=== PATIENT | female | born 1955 | race Caucasian/White ===

== ENCOUNTER → 2017-05-25 | Outpatient (CLI) | payer OTHER ==
[~2017-05-25] MED LIST: SIMV20TA2 PO; XRL15 PO
[2017-06-02 13:24] LABS: B2 GLYCOPROTEIN IGA <9 SAU (<=20); B2 GLYCOPROTEIN IGG <9 SGU (<=20); B2 GLYCOPROTEIN IGM <9 SMU (<=20); DRVVT MIX INTERPRETAION Not Indicated; LAC PTT SCREEN 36 sec (<=40); LUPUS ANTICOAGULANT** TC36573X Negative (Negative); PHOSPHATIDYLSERINE IGA <20 U/mL (<20); PHOSPHATIDYLSERINE IGG <10 U/mL (<10); PHOSPHATIDYLSERINE IGM <25 U/mL (<25)
== END | disposition home or self-care (01) ==
LOC: C.LABPBG 10:30 → C.LAB 10:36
PROVIDERS: ATTEND Internal Medicine
DX: D68.62 Lupus anticoagulant syndrome (principal)

== ENCOUNTER → 2017-11-25 | Outpatient (CLI) | payer OTHER ==
[2017-11-25 17:36] LABS: ALBUMIN 3.7 gm/dl (3.4-5.0); ALT/SGPT 27 U/L (12-78); BLOOD UREA NITROGEN 14 mg/dl (7-18); CALCIUM 9.4 mg/dl (8.5-10.1); CARBON DIOXIDE 28 mmol/L (21-32); CHOLESTEROL 158 mg/dl (0-200); CREATININE 0.82 mg/dl (0.60-1.20); GLUCOSE 91 mg/dl (70-99); POTASSIUM 4.3 mmol/L (3.5-5.1); SODIUM 138 mmol/L (136-145)
[2017-11-25 17:46] LABS: ALKALINE PHOSPHATASE 113 U/L (45-117); AST/SGOT 16 U/L (15-37); LDL CHOLESTEROL CALCULATED 72 mg/dl; TOTAL PROTEIN 7.2 gm/dl (6.4-8.2)
== END | disposition home or self-care (01) ==
LOC: C.LABPBG 13:25
PROVIDERS: ATTEND Internal Medicine
DX: Z00.00 Encounter for general adult medical examination without abnormal findings (principal)

== ENCOUNTER → 2017-12-22 | Outpatient (CLI) | payer OTHER ==
--- NOTE | 2017-12-25 09:28 | POLYSOMNOGRAPH REPORT ---
CLINICAL DATA: A 62-year-old female with BMI of 46.[address] Giuliano Sal with symptoms of snoring and chronic fatigue. She also has episodes where she awakens gasping for breath at night. She is considering seeing Dr. Acosta for weight loss. On the evening of 12/22/2017, a home sleep apnea test was performed using a [employer] type 3 monitor. RECORDING RESULTS: Total recording time was 10 hours. The patient's monitoring time and estimated sleep time was 6.5 hours. RESPIRATORY DATA: Moderate sleep apnea was documented. The ANGELA was 22.6. There were 10 obstructive and 4 central apneic episodes. There were 133 hypopneic episodes. The longest respiratory event was 49 seconds. OXIMETRY DATA: Nocturnal hypoxemia was seen. Oxygen ab was 72%. Mean saturation was 90%. Time below 89% was 69 minutes. HEART RATE DATA: Heart rates ranged from 73-85 beats per minute. SNORING DATA: Snoring was recorded throughout the night. IMPRESSION: Moderate sleep apnea/hypopnea with an ANGELA of 22.6 with nocturnal hypoxemia. RECOMMENDATIONS: The patient may benefit from a repeat sleep study with CPAP, use of auto CPAP, use of an oral appliance, or sleep medicine consultation. Clinical correlation is needed. BERTHA
== END | disposition home or self-care (01) ==
LOC: C.NEUR 08:49
PROVIDERS: ATTEND Internal Medicine
DX: R53.82 Chronic fatigue, unspecified (principal); R06.89 Other abnormalities of breathing; R06.83 Snoring